=== PATIENT | male | born 1960 | race Two or more races ===

== ENCOUNTER 2025-05-05 07:59 | Emergency (ER) | payer OTHER ==
[~2025-05-05] VITALS: Ht 182.9 cm; Wt 99.8 kg
[2025-05-05] MEDS ORDERED: ATACAND16 MG PO (08:17)
[2025-05-05] MEDS ORDERED: AMLODIPINE BESYL5 MG PO (08:18)
[2025-05-05] MEDS ORDERED: [UNRECOGNIZED DRUG - OTHER] (08:18)
[2025-05-05] MEDS ORDERED: KETOROLAC TROMETHAMINE 30 MG VIAL IV ONE (08:30)
[2025-05-05] MEDS ORDERED: CEFTRIAXONE SODIUM 1,000 MG VIAL IV ONE (08:30)
[2025-05-05] MEDS ORDERED: 0.9 % SODIUM CHLORIDE 500 ML IV ONE (08:30)
[2025-05-05] MEDS ORDERED: TAMSULOSIN HCL 0.4 MG CAP PO ONE ×2 (08:30→08:32)
[2025-05-05] MEDS ORDERED: FAMOtidine 10 MG/ML (4ML VIAL) IV ONE (08:30)
[2025-05-05] MEDS ORDERED: KETOROLAC TROMETHAMINE 30 MG VIAL ONE (08:31)
[2025-05-05] MEDS ORDERED: CEFTRIAXONE SODIUM 1,000 MG VIAL ONE (08:32)
[2025-05-05] MEDS ORDERED: FAMOTIDINE/PF 20 MG/2 ML VIAL ONE (08:32)
[2025-05-05 09:48] LABS: INR 1.04
[2025-05-05 09:51] LABS: ALT/SGPT 30.0 U/L (12-78); AST/SGOT 20.0 U/L (15-37); BILIRUBIN TOTAL 0.78 mg/dL (0.3-1.2); BUN CREA RATIO 14.0 (7.0-25.0); CREATININE SERUM 0.98 mg/dL (0.70-1.30); GFR 76.52; GLOBULINA 3.4 G/DL (2.4-3.5); GLUCOSE FASTING 95.0 mg/dL (65-100); OSMOLALITY SERUM 285.0 MOSM/KG (275-295)
[2025-05-05 09:53] LABS: BASO % 0.5 % (0.1-1.2); EOS # 0.31 (0.04-0.54); EOS % 5.3 % (0.7-7.0); LYMPH # 1.83 (1.18-3.74); LYMPH % 31.2 % (19.3-53.1); MEAN PLATELET VOLUME 11.10 fl (9.4-12.4); MONO # 0.59 (0.24-0.82); MONO % 10.1 % (4.7-12.5); NEUT # 3.09 (1.56-6.13); NEUT % 52.7 % (34.0-71.1); RED CELL DISTRIBUTION WIDTH 14.5 % (11.6-14.4)
[2025-05-05] MEDS ORDERED: BACTRIM DS TAB1 EACH PO (13:00)
[2025-05-05] MEDS ORDERED: PEPCID AC20 MG PO (13:00)
== END 2025-05-05 13:18 | disposition home or self-care (01) ==
LOC: ER 08:00
PROVIDERS: General Practice
DX: R33.8 Other retention of urine (principal); I10 Essential (primary) hypertension